=== PATIENT | female | born 1940 | race Caucasian/White ===

== ENCOUNTER 2020-04-09 07:11 | Day surgery (SDC) | payer MEDICARE, OTHER ==
[2020-04-09 07:20] VITALS: BP 117/35
[2020-04-09] MEDS ORDERED: SYN0.112T PO (07:35)
[2020-04-09] MEDS ORDERED: MIDAZolam 5mg/5ml vial ONE (07:36)
[2020-04-09] MEDS ORDERED: FURO-149 PO (07:36)
[2020-04-09] MEDS ORDERED: LISI-600 PO (07:36)
[2020-04-09] MEDS ORDERED: meperidine/PF 100mg/ml syringe ONE (07:36)
[2020-04-09] MEDS ORDERED: SERT-153 PO (07:37)
[2020-04-09] MEDS ORDERED: ATOR10TA70 PO (07:38)
[2020-04-09] MEDS ORDERED: ROPI0.252 PO (07:39)
[2020-04-09] MEDS ORDERED: CARV3.122 PO (07:39)
[2020-04-09] MEDS ORDERED: CYAN100020 SL (07:40)
[2020-04-09] MEDS ORDERED: PYRI100T10 PO (07:41)
[2020-04-09] MEDS ORDERED: CALC-1073 PO (07:42)
[2020-04-09] MEDS ORDERED: MULT-1130 PO (07:43)
[2020-04-09] MEDS ORDERED: ASPI-611 PO (07:43)
[2020-04-09] MEDS ORDERED: CARB1DRO11 (07:44)
[2020-04-09] MEDS ORDERED: FAMO40TA73 PO (07:49)
[2020-04-09] MEDS ORDERED: MV-M1TAB69 (07:49)
[2020-04-09] MEDS ORDERED: ASCO100T12 PO (07:50)
[2020-04-09] MEDS ORDERED: LYSI500T11 PO (07:51)
[2020-04-09] MEDS ORDERED: BIOT5000 PO (07:51)
[2020-04-09 08:30] VITALS: BP 114/60
[2020-04-09 08:40] VITALS: BP 115/66
[2020-04-09 08:50] VITALS: BP 118/62
[2020-04-09 09:00] VITALS: BP 116/67
== END 2020-04-09 09:12 | disposition home or self-care (01) ==
LOC: GI LAB 07:11
PROVIDERS: ATTEND Internal Medicine Gastroenterology
DX: Z12.11 Encounter for screening for malignant neoplasm of colon (principal); D12.2 Benign neoplasm of ascending colon; D12.3 Benign neoplasm of transverse colon; K62.1 Rectal polyp; K57.30 Diverticulosis of large intestine without perforation or abscess without bleeding; I25.2 Old myocardial infarction; I25.10 Atherosclerotic heart disease of native coronary artery without angina pectoris; E03.9 Hypothyroidism, unspecified; Z86.010 Personal history of colon polyps; Z87.891 Personal history of nicotine dependence; Z88.8 Allergy status to other drugs, medicaments and biological substances; Z79.899 Other long term (current) drug therapy; Z79.82 Long term (current) use of aspirin
CPT/HCPCS: 45385; C1773; G0500; J2175; J2250; J7040; 88305; 99152; A4620